=== PATIENT | male | born 1990 | race African-American/Black ===

== ENCOUNTER 2018-01-15 22:47 | Emergency (ER) | payer MEDICAID ==
[~2018-01-15] VITALS: Ht 185.4 cm; Wt 82.0 kg
[2018-01-16] MEDS ORDERED: KETOROLAC 30MG/ML VIAL IV STA (01:50)
[2018-01-16] MEDS ORDERED: HALOPERIDOL LACTATE 5MG/ML VIAL IM ONE (02:00)
[2018-01-16 02:45] LABS: PROTHROMBIN TIME 10.6 sec (9.4-11.6)
[2018-01-16 02:47] LABS: CHLORIDE 101 mEq/L (98-107); ETHANOL BLOOD < 10 mg/dL
[2018-01-16 03:54] LABS: BASOPHILS % 0.3 % (0.0-2.0); EOSINOPHILS % 1.7 % (0.0-5.0); HEMATOCRIT. 44.2 % (42.0-52.0); HEMOGLOBIN. 15.7 g/dL (14.0-18.0); LYMPHOCYTES % 9.9 % (20.0-50.0); MEAN CORPUSCULAR HEMOGLOBIN 30.3 pg (28.0-32.0); MEAN CORPUSCULAR VOLUME 85.4 fL (80.0-94.0); MEAN PLATELET VOLUME 7.9 fl (7.4-10.4); MONOCYTES % 8.9 % (2.0-8.0); NEUTROPHILS % 79.2 % (40.0-76.0); PLATELET 214 x1000/uL (130-400); RED BLOOD CELL COUNT 5.18 mill/uL (4.7-6.1); RED CELL DISTRIBUTION WIDTH 16.3 % (11.6-14.6)
[2018-01-16] MEDS ORDERED: METRONIDAZOLE 500 MG PREMIX 100 ML IV ONE (04:45)
[2018-01-16] MEDS ORDERED: CEFTRIAXONE 1 G PREMIX 50 ML IV ONE (04:45)
[2018-01-16 05:00] VITALS: BP 165/80
== END 2018-01-16 05:05 | disposition home or self-care (01) ==
LOC: ER 22:47 → CANBEDREQ 01-16 07:24
DX: K52.9 Noninfective gastroenteritis and colitis, unspecified (principal); J45.909 Unspecified asthma, uncomplicated; I10 Essential (primary) hypertension; F17.200 Nicotine dependence, unspecified, uncomplicated; F15.10 Other stimulant abuse, uncomplicated
CPT/HCPCS: 36415; 71045; 74176; 80053; 83690; 85025; 85610; 96374; 99285; G0482; J1885; Z7610; 86359; 86360; J1630

== ENCOUNTER 2018-07-15 18:10 | Emergency (ER) | payer MEDICAID ==
[~2018-07-15] VITALS: Ht 182.9 cm; Wt 82.0 kg
[2018-07-15] MEDS ORDERED: ACETAMINOPHEN 325MG TABLET PO ONE (19:30)
[2018-07-15] MEDS ORDERED: ALBUTEROL (0.083%) 2.5MG/3ML NEB HHN ONE (19:30)
[2018-07-15 20:06] VITALS: BP 153/97
== END 2018-07-15 20:58 | disposition home or self-care (01) ==
LOC: ER 18:10
DX: K02.9 Dental caries, unspecified (principal); R03.0 Elevated blood-pressure reading, without diagnosis of hypertension; J45.909 Unspecified asthma, uncomplicated; R51 Headache
CPT/HCPCS: 93005; 94640; 99283; J7611; Z7610